=== PATIENT | female | born 1970 | race Caucasian/White ===

== ENCOUNTER 2016-11-05 12:22 | Emergency (ER) | payer MEDICAID ==
[2016-11-05 12:34] VITALS: BP 146/89
--- NOTE | 2016-11-05 12:46 | EDM.PDOC ---
ED HPI ALTERED MENTAL STATUS - General Chief Complaint: Drug or Alcohol Abuse Stated Complaint: [facility] Time Seen by Provider: 11/05/16 12:30 Source of Information: Reports: Patient History Limitations: Reports: No limitations - History of Present Illness INITIAL COMMENTS - FREE TEXT/NARRATIVE: Patient is now alert and speaks completely normally. She reports she feels back to normal. She cannot remember that time that she injected herself with heroin in her right knee area. She was warned that it was very potent. She states was white in color. She is a long-term heroine user. Apparently people that she was with instructed one of the children to call 911 and paramedics arrived to find her not breathing. She had no veins to speak of. She therefore received 2 mg of Narcan intranasally and then she was bagged aggressively to try get into her bloodstream. She received second dose of 2 mg of Narcan in one of her external jugular veins. This brought her back to normal cognition. 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 - Related Data Allergies/ADRs: Allergies amoxicillin [Amoxicillin] Allergy (Verified 11/05/16 12:27) Swelling codeine Allergy (Verified 11/05/16 12:27) Hives Home Meds: Home Meds Ciprofloxacin [Ciprofloxacin HCl] 500 mg PO BID #14 tablet 06/16/16 [Rx] Past Medical History Genitourinary History: Reports: Renal calculus - Past Surgical History HEENT Surgical History: Reports: Other (see below) Other HEENT 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 Female Surgical History: Reports: section Musculoskeletal Surgical History: Reports: Other (see below) Other Musculoskeletal Surgeries/Procedures:: back surgery Social & Family History - Tobacco Use Smoking Status *Q: Current Every Day Smoker Years of Tobacco use: 30 Packs/Tins Daily: 0.5 - Caffeine Use Caffeine Use: Reports: Soda - Alcohol Use Days Per Week of Alcohol Use: 0 - Recreational Drug Use Recreational Drug Use: Yes Drug Use in Last 12 Months: Yes - Living Situation & Occupation Living situation: Reports: Occupation: unemployed ED ROS GENERAL - Review of Systems Review Of Systems: See Below Constitutional: Reports: no symptoms HEENT: Reports: No symptoms Respiratory: Reports: Shortness of Breath (Chronic smoker), Cough Cardiovascular: Denies: Chest pain Endocrine: Reports: fatigue GI/Abdominal: Reports: Constipation (Occasional) : Reports: frequency Musculoskeletal: Reports: back pain Skin: Reports: bruising Neurological: Reports: No Symptoms Psychiatric: Reports: No symptoms - Physical Exam Exam: See Below Exam Limited By: No limitations General Appearance: alert, no apparent distress (States feels good enough to go home.) Eye Exam: bilateral eye: normal inspection, PERRL (Pupils are 6 mm and equal. There is no gaze palsy.) Throat/Mouth: Normal inspection, Normal lips, Normal teeth (No evidence of tongue injury or bite injury), Normal oropharynx Head Exam: atraumatic, normocephalic Neck: normal inspection, supple, non-tender, full range of motion Respiratory/Chest: no respiratory distress, no accessory muscle use, rhonchi, wheezing (Rhonchi right upper lobe which cleared with coughing. Occasional diffuse expiratory wheezes. She smokes a pack and half of cigarettes daily.) Cardiovascular: normal peripheral pulses, regular rate, rhythm, no edema, no gallop, no murmur GI/Abdominal: normal bowel sounds, soft, non tender, no organomegaly, no distention Neuro Exam (Abbreviated): alert, oriented, CN II-XII intact, normal cognition Back Exam: normal inspection, full range of motion Extremities: normal inspection, normal range of motion, non-tender, normal capillary refill Psychiatric: normal affect, normal mood Skin Exam: Warm, Dry, Intact, Normal color, Other (Injection site today was just superior and medial to her right patella.) Course - Vital Signs Last Recorded V/S: Last Vital Signs Temp 36.3 C 11/05/16 12:27 Pulse 93 11/05/16 12:27 Resp 15 11/05/16 12:27 BP 146/89 H 11/05/16 12:27 Pulse Ox 100 11/05/16 12:27 - Radiology Interpretation Free Text/Narrative:: 46-year-old female presents the ED per [place] embolus. They were summoned to a home for a lady not breathing. Appears that she had taken an intentional dose of her one as she is a recreational heroin user chronically. She was warned of the current heroin that she had just bone was quite strong and to take a smaller dose than normal. She states she did so. Unclear how long she passed out for. She can't remember exactly when she injected herself. Paramedics had a very difficult time resuscitating her. They could find no veins. She received Narcan 1 mg each nares by aerosol spray and then bag vigorously and her nasal mucosa. They did give her 2 mg and an external jugular vein which brought her back to normal cognition. Vital signs on arrival are revealing O2 sats 100%. Chest is clear to auscultation except for a few rhonchi from cigarette smoking. No function is completely normal. Plan is to be monitored for an hour and a half or so to make sure that there is no rebound as the Narcan wears off and she rate relapses. - Re-Assessments/Exams Free Text/Narrative Re-Assessment/Exam: 11/05/16 14:00: Feels fine with no nausea vomiting. No evidence of recurrence of spider Lonnie distress. She did express an interest in pursuing either Suboxone her meds methadone treatment program to stop using intravenous oncotics. I will therefore make a referral to Dr. Lopez up in [place] on her behalf. Not sure if there is a restricted the patient's that he sees Center. I will have his office give her call at your leisure. Departure - Departure Time of Disposition: 14:21 Disposition: Home, Self-Care 01 Condition: fair Clinical Impression: Accidental heroin overdose Qualifiers: Encounter type: initial encounter Qualified Code(s): T40.1X1A - Poisoning by heroin, accidental (unintentional), initial encounter Instructions: Opioid Overdose Referrals: Cristin Wise PA-C [Primary Care Provider] - Additional Instructions: Evaluation in emergency today after being vigorously resuscitated by paramedics after an accidental heroin overdose. They found you not breathing after use of heroin. You were resuscitated with a milligram of Narcan up each nostril and then 2 mg injected into the external jugular vein to bring you back to life. Monitored in the ED to make sure there was no rebound respiratory depression after receiving the Narcan. Narcan effect wears off in about 20 minutes to half an hour.
== END 2016-11-05 14:50 | disposition home or self-care (01) ==
LOC: JD.ED 12:22
DX: T40.1X1A Poisoning by heroin, accidental (unintentional), initial encounter (principal); F17.210 Nicotine dependence, cigarettes, uncomplicated; Z98.890 Other specified postprocedural states; Z88.1 Allergy status to other antibiotic agents; Z88.5 Allergy status to narcotic agent
CPT/HCPCS: 99283; 99284

== ENCOUNTER 2016-11-07 03:40 | Emergency (ER) | payer MEDICAID ==
[2016-11-07 03:59] VITALS: BP 142/89
[2016-11-07] MEDS ORDERED: Clindamycin HCl 150 MG Cap PO ONE (04:11)
--- NOTE | 2016-11-07 04:13 | EDM.PDOC ---
ED HPI ENT - General Chief Complaint: ENT Problem Stated Complaint: UPPER RIGHT SIDE TOOTH PAIN Time Seen by Provider: 11/07/16 04:04 Source of Information: Reports: Patient History Limitations: Reports: No limitations - History of Present Illness INITIAL COMMENTS - FREE TEXT/NARRATIVE: The patient presents with right upper canine dental pain. This started last week but has been getting worse. She has no fever or chills. She does have bad teeth and has seen a dentist in [place] and they plan on removing 11 teeth. Timing/Duration: Reports: Day(s): Severity: severe Location: Reports: mouth Quality: Reports: Sharp Improves with: Reports: None Worsens with: Reports: None Associated Symptoms: Denies: fever/chills - Related Data Allergies/ADRs: Allergies Allergy/AdvReac Type Severity Reaction Status Date / Time amoxicillin [Amoxicillin] Allergy Swelling Verified 11/07/16 04:00 codeine Allergy Hives Verified 11/07/16 04:00 Home Meds: Home Meds Ciprofloxacin [Ciprofloxacin HCl] 500 mg PO BID #14 tablet 06/16/16 [Rx] Clindamycin HCl 450 mg PO TID #90 capsule 11/07/16 [Rx] traMADol [Ultram] 50 - 100 mg PO Q6H PRN #20 tablet 11/07/16 [Rx] Past Medical History Genitourinary History: Reports: Renal calculus - Past Surgical History HEENT Surgical History: Reports: Other (see below) Other HEENT 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 Female Surgical History: Reports: section Musculoskeletal Surgical History: Reports: Other (see below) Other Musculoskeletal Surgeries/Procedures:: back surgery Social & Family History - Tobacco Use Smoking Status *Q: Current Every Day Smoker Years of Tobacco use: 30 Packs/Tins Daily: 0.5 - Caffeine Use Caffeine Use: Reports: Soda - Alcohol Use Days Per Week of Alcohol Use: 0 - Recreational Drug Use Recreational Drug Use: Yes Drug Use in Last 12 Months: Yes - Living Situation & Occupation Living situation: Reports: Occupation: unemployed ED ROS ENT - Review of Systems Review Of Systems: See Below Constitutional: Reports: no symptoms HEENT: Reports: Dental pain Respiratory: Reports: No Symptoms Cardiovascular: Reports: No symptoms Endocrine: Reports: no symptoms GI/Abdominal: Reports: No symptoms : Reports: no symptoms ED EXAM, ENT - Physical Exam Exam: See Below Exam Limited By: No limitations General Appearance: alert, no apparent distress Ears: normal external exam Nose: normal inspection Mouth/Throat: Other (Poor dental hygeine with missing teeth. Pain upon palpation, erythema and edema of the right upper cannine.) Course - Vital Signs Last Recorded V/S: Last Vital Signs Temp 97.6 F 11/07/16 03:56 Pulse 120 H 11/07/16 03:56 Resp 18 11/07/16 03:56 BP 142/89 H 11/07/16 03:56 Pulse Ox 99 11/07/16 03:56 Departure - Departure Time of Disposition: 04:15 Disposition: Home, Self-Care 01 Condition: good Clinical Impression: Dental abscess, Dental caries Prescriptions: Clindamycin HCl 450 mg PO TID #90 capsule traMADol [Ultram] 50 - 100 mg PO Q6H PRN #20 tablet PRN Reason: Pain Forms: ED Department Discharge Additional Instructions: Take the clindamycin 3 pills 3 times per day for 10 days. Take the ultram 1 to 2 pills every 6 hours as needed for pain. Follow up with your dentist within a week. Please return if you are worse.
== END 2016-11-07 04:39 | disposition home or self-care (01) ==
LOC: JD.ED 03:40
DX: K04.7 Periapical abscess without sinus (principal); K02.9 Dental caries, unspecified; F17.210 Nicotine dependence, cigarettes, uncomplicated; Z88.1 Allergy status to other antibiotic agents; Z88.5 Allergy status to narcotic agent; Z79.899 Other long term (current) drug therapy
CPT/HCPCS: 99282; A9270; 99283

== ENCOUNTER 2017-01-16 20:01 | Emergency (ER) | payer MEDICAID ==
[2017-01-16 20:23] VITALS: BP 132/86
[2017-01-16] MEDS ORDERED: Sodium Chloride 0.9% 1,000 ML IV SCH (20:45)
[2017-01-16] MEDS ORDERED: Ondansetron 4 MG Tab.DIS PO ONE (20:47)
--- NOTE | 2017-01-16 21:19 | EDM.PDOC ---
ED HPI GENERAL MEDICAL PROBLEM - General Chief Complaint: General Stated Complaint: HEAT STROKE Time Seen by Provider: 01/16/17 20:29 Source of Information: Reports: Patient History Limitations: Reports: No Limitations - History of Present Illness INITIAL COMMENTS - FREE TEXT/NARRATIVE: This is a 46-year-old female. She spent her day at [facility] from 6:30 AM to 4 PM. She thinks she has heatstroke so she been sweating the entire time. She does complain of blurry vision nausea leg cramps shortness of breath. She denies any alcohol intake at the [place]. now that she is in the building she says the blurry vision has resolved her nausea is still slightly there her cramps are gone she was not short of breath. When I mentioned we would draw some blood on her and check her blood premature he requested an HIV test. I indicated we don't normally do that in the ER since we have a hard time with followup and that the health department as HIV testing and she should go there . 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: Neurological History: Reports: Migraines Psychiatric History: Reports: Addiction, Anxiety, Depression Other Psychiatric History: Patient states she has a history of drug addiction - Infectious Disease History Infectious Disease History: Reports: Hepatitis C - Past Surgical History Female Surgical History: Reports: Section Social & Family History - Tobacco Use Smoking Status *Q: Current Every Day Smoker Years of Tobacco use: 30 Packs/Tins Daily: 0.5 Used Tobacco, but Quit: No Second Hand Smoke Exposure: No - Caffeine Use Caffeine Use: Reports: Soda - Alcohol Use Days Per Week of Alcohol Use: 0 - Recreational Drug Use Recreational Drug Use: Yes Drug Use in Last 12 Months: Yes Recreational Drug Type: Reports: Heroin, Methamphetamine Other Recreational Drug Type: History, patient states she last used many years ago Recreational Drug Use Frequency: Patient Refuses To Answer - Living Situation & Occupation Living situation: Reports: Occupation: Unemployed ED ROS GENERAL - Review of Systems Review Of Systems: See Below Constitutional: Reports: Weakness, Fatigue HEENT: Reports: No Symptoms Respiratory: Reports: No Symptoms Cardiovascular: Reports: No Symptoms Endocrine: Reports: No Symptoms GI/Abdominal: Reports: Nausea. Denies: Vomiting : Reports: No Symptoms Musculoskeletal: Reports: No Symptoms Skin: Reports: No Symptoms Neurological: Reports: Headache Psychiatric: Reports: No Symptoms ED EXAM, GENERAL - Physical Exam Exam: See Below Exam Limited By: No Limitations General Appearance: Alert, WD/WN, No Apparent Distress Eye Exam: Bilateral Eye: Normal Inspection Ears: Normal External Exam Nose: Normal Inspection Throat/Mouth: Normal Inspection, Normal Lips, Normal Voice Head: Normocephalic Neck: Supple Respiratory/Chest: No Respiratory Distress, Lungs Clear, Normal Breath Sounds Cardiovascular: Regular Rate, Rhythm, No Murmur GI/Abdominal: Soft, Non-Tender Back Exam: Full Range of Motion Extremities: Normal Inspection, Normal Range of Motion Neurological: Alert, Oriented Psychiatric: Normal Affect, Normal Mood Skin Exam: Warm, Dry, Other (Patient has evidence of first degree sunburn to her face shoulders upper arms noted specifically) Course - Vital Signs Last Recorded V/S: Last Vital Signs Temp 97.5 F 01/16/17 20:14 Pulse 91 01/16/17 20:14 Resp 20 01/16/17 20:14 BP 132/86 01/16/17 20:23 Pulse Ox 99 01/16/17 20:14 - Orders/Labs/Meds Labs: Laboratory Tests 01/16/17 01/16/17 Range/Units 21:35 21:35 WBC 12.22 H (3.98-10.04) K/mm3 RBC 4.94 (3.98-5.22) M/mm3 Hgb 10.7 L (11.2-15.7) gm/L Hct 34.6 (34.1-44.9) % MCV 70.0 L (79.4-94.8) fl MCH 21.7 L (25.6-32.2) pg MCHC 30.9 L (32.2-35.5) g/dl RDW Std Deviation 45.3 (36.4-46.3) fL Plt Count 354 (182-369) K/mm3 MPV 11.3 (9.4-12.3) fl Neut % (Auto) 58.6 (34.0-71.1) % Lymph % (Auto) 24.2 (19.3-51.7) % [place] % (Auto) 12.8 H (4.7-12.5) % Eos % (Auto) 2.9 (0.7-5.8) Baso % (Auto) 0.4 (0.1-1.2) % Neut # (Auto) 7.16 H (1.56-6.13) K/mm3 Lymph # (Auto) 2.96 (1.18-3.74) K/mm3 [place] # (Auto) 1.56 H (0.24-0.36) K/mm3 Eos # (Auto) 0.36 (0.04-0.36) K/mm3 Baso # (Auto) 0.05 (0.01-0.08) K/mm3 Manual Slide Review Abnormal smear Sodium 140 (136-145) mEq/L Potassium 4.4 (3.5-5.1) mEq/L Chloride 105 (98-107) mEq/L Carbon Dioxide 23 (21-32) mEq/L Anion Gap 16.4 H (5-15) BUN 19 H (7-18) mg/dL Creatinine 0.8 (0.55-1.02) mg/dL Est Cr Clr Drug Dosing 89.58 mL/min Estimated GFR (MDRD) > 60 (>60) mL/min BUN/Creatinine Ratio 23.8 H (14-18) Glucose 102 (74-106) mg/dL Calcium 9.3 (8.5-10.1) mg/dL Total Bilirubin 0.3 (0.2-1.0) mg/dL AST 104 H (15-37) U/L ALT 112 H (14-59) U/L Alkaline Phosphatase 108 (46-116) U/L Creatine Kinase 48 (26-192) U/L Total Protein 9.1 H (6.4-8.2) g/dl Albumin 3.4 (3.4-5.0) g/dl Globulin 5.7 gm/dL Albumin/Globulin Ratio 0.6 L (1-2) Meds: Medications Discontinued Medications Generic Name Dose Route Start Last Admin Trade Name Sadaf PRN Reason Stop Dose Admin Sodium Chloride 1,000 mls @ 1,000 mls/hr 01/16/17 20:45 Normal Saline IV ASDIRECTED [facility], [facility] Ondansetron HCl 4 mg 01/16/17 20:47 01/16/17 20:50 Zofran Odt PO 01/16/17 20:48 4 mg ONETIME ONE Administration - Re-Assessments/Exams Free Text/Narrative Re-Assessment/Exam: 01/16/17 23:59 Spoke to the patient regarding her lab results. I encouraged her to continue lots of fluids and stay out of the sun over the weekend. Departure - Departure Time of Disposition: 23:59 Disposition: Home, Self-Care 01 Condition: good Clinical Impression: Mild dehydration Heat exhaustion Qualifiers: Encounter type: initial encounter Qualified Code(s): T67.5XXA - Heat exhaustion , unspecified, initial encounter - Discharge Information Prescriptions: Ondansetron [Zofran ODT] 4 mg PO Q6H PRN #12 tab.dis PRN Reason: Nausea Referrals: Cristin Wise PA-C [Primary Care Provider] - Forms: ED Department Discharge Additional Instructions: Stay out of the sun over the weekend, to not overheated yourself with activity for the next 48 hours, continue to drink lots of fluids especially water and juices and avoid caffeine, recheck with your doctor later this week, return to the ER if needed
== END 2017-01-17 00:15 | disposition home or self-care (01) ==
LOC: JD.ED 20:01
DX: T67.5XXA Heat exhaustion, unspecified, initial encounter (principal); L55.0 Sunburn of first degree; E86.0 Dehydration; F17.210 Nicotine dependence, cigarettes, uncomplicated; Z88.1 Allergy status to other antibiotic agents; Z88.5 Allergy status to narcotic agent; Z98.890 Other specified postprocedural states
CPT/HCPCS: 36415; 80053; 82550; 85025; 99284; A9270; 99283

== ENCOUNTER 2018-01-03 00:27 | Emergency (ER) | payer MEDICAID ==
[2018-01-03 00:35] VITALS: BP 146/98
[2018-01-03] MEDS ORDERED: Ketorolac 60 MG/2 ML SDV IM ONE (01:15)
--- NOTE | 2018-01-03 01:21 | EDM.PDOC ---
ED HPI GENERAL MEDICAL PROBLEM - General Chief Complaint: ENT Problem Stated Complaint: TOOTH PAIN Time Seen by Provider: 01/03/18 00:35 Source of Information: Reports: Patient History Limitations: Reports: No Limitations - History of Present Illness INITIAL COMMENTS - FREE TEXT/NARRATIVE: This is a 47-year-old female. She states she was flossing her teeth this evening and she rubbed it across a tooth that was decayed down to the gum and started having increasing pain and now she's has some swelling on the right side of her face. She denies any drainage at this time. She does have a history of advanced dental caries with multiple teeth that are decayed to the gums. She denies any fever or chills denies any nausea or vomiting. Patient is a recovering addict. Right Upper Tooth/Teeth Pain Score (Numeric/FACES): 9 - Related Data Allergies Allergy/AdvReac Type Severity Reaction Status Date / Time amoxicillin [Amoxicillin] Allergy Swelling Verified 01/03/18 00:34 codeine Allergy Hives Verified 01/03/18 00:34 Home Meds: Home Meds Clindamycin HCl 300 mg PO TID #21 capsule 01/03/18 [Rx] Ketorolac Tromethamine 10 mg PO Q8H PRN #12 tablet 01/03/18 [Rx] Naproxen Sodium [Aleve] 2 tab PO QID 01/03/18 [History] Past Medical History Gastrointestinal History: Reports: Hepatitis Other Gastrointestinal History: Hepatitis C Genitourinary History: Reports: Renal Calculus 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 Manic depression Hematologic History: Reports: Anemia Oncologic (Cancer) History: Reports: Cervix - Infectious Disease History Infectious Disease History: Reports: Hepatitis C - Past Surgical History Other GI Surgeries/Procedures: Liver biopsy Female Surgical History: Reports: Section Other Musculoskeletal Surgeries/Procedures:: Back surgery x4 Social & Family History - Family History Family Medical History: Noncontributory - Tobacco Use Smoking Status *Q: Current Every Day Smoker Years of Tobacco use: 31 Packs/Tins Daily: 0.4 - Caffeine Use Caffeine Use: Reports: Soda - Recreational Drug Use Recreational Drug Use: Yes Drug Use in Last 12 Months: No Recreational Drug Type: Reports: Ativan, Benzodiazepines, Cocaine, Codiene, Dilaudid, Fentanyl, Heroin, Marijuana/Hashish, Methamphetamine, Morphine, Oxycodone, Valium, Xanax Other Recreational Drug Type: "Any pain killers" - Last used Jun 2016 - Living Situation & Occupation Living situation: Reports: Occupation: Unemployed ED ROS ENT - Review of Systems Review Of Systems: See Below Constitutional: Denies: Fever, Chills HEENT: Reports: Other (As per history of present illness) Respiratory: Reports: No Symptoms Cardiovascular: Reports: No Symptoms Endocrine: Reports: No Symptoms GI/Abdominal: Reports: No Symptoms : Reports: No Symptoms Musculoskeletal: Reports: No Symptoms Skin: Reports: No Symptoms Neurological: Reports: No Symptoms Psychiatric: Reports: No Symptoms ED EXAM, ENT - Physical Exam Exam: See Below Exam Limited By: No Limitations General Appearance: Alert, WD/WN, No Apparent Distress Eye Exam: Bilateral Eye: Normal Inspection Ears: Normal External Exam Nose: Normal Inspection Mouth/Throat: Normal Lips, Normal Oropharynx, Other (Multiple advanced dental caries with decay to the gums, she does have 5 teeth in the lower gum area anteriorly that appear to be intact, the tooth of question is in the upper anterior jaw all.) Head: Other (She is noted to have on the right upper lip and cheek some swelling compared to the left side and it is tender on palpation) Neck: Supple Respiratory/Chest: No Respiratory Distress, Lungs Clear, Normal Breath Sounds Cardiovascular: Regular Rate, Rhythm, No Murmur GI/Abdominal: Soft Back: Full Range of Motion Extremities: Normal Inspection, Normal Range of Motion Neurological: Alert, Oriented Psychiatric: Normal Affect, Normal Mood Skin: Warm, Dry Course - Vital Signs Last Recorded V/S: Last Vital Signs Temp 98.2 F 01/03/18 00:32 Pulse 109 H 01/03/18 00:32 Resp 18 01/03/18 00:32 BP 146/98 H 01/03/18 00:32 Pulse Ox 96 01/03/18 00:32 - Orders/Labs/Meds Orders: Active Orders 24 hr Category Date Time Status Ketorolac [Toradol] Med 01/03/18 01:15 Once 60 mg IM ONETIME ONE Departure - Departure Time of Disposition: 01:21 Disposition: Home, Self-Care 01 Condition: Good Clinical Impression: Dental caries into pulp, Dental infection, Pain due to dental caries, Soft tissue infection - Discharge Information Prescriptions: Clindamycin HCl 300 mg PO TID #21 capsule Ketorolac Tromethamine 10 mg PO Q8H PRN #12 tablet PRN Reason: Pain Referrals: Cristin Wise PA-C [Primary Care Provider] - Additional Instructions: Give the antibiotics and the pain medicine tomorrow when the pharmacy opens and start taking them as prescribed, YOU USE SHOULD NOT TAKE TORADOL AND NAPROXEN AT THE SAME TIME BECAUSE IT CAN CAUSE ULCERS SO STOP THE NAPROXEN WHILE YOU ARE ON THE TORADOL, follow-up with your family doctor this week for recheck and follow-up with your dentist for tooth repair, return to the ER if needed - My Orders Last 24 Hours: My Active Orders 01/03/18 01:15 Ketorolac [Toradol] 60 mg IM ONETIME ONE - Assessment/Plan Last 24 Hours: My Active Orders 01/03/18 01:15 Ketorolac [Toradol] 60 mg IM ONETIME ONE
== END 2018-01-03 01:33 | disposition home or self-care (01) ==
LOC: JD.ED 00:27
DX: K02.9 Dental caries, unspecified (principal); K04.7 Periapical abscess without sinus; F17.210 Nicotine dependence, cigarettes, uncomplicated; Z88.1 Allergy status to other antibiotic agents; Z88.5 Allergy status to narcotic agent; Z79.899 Other long term (current) drug therapy
CPT/HCPCS: 96372; 99283; J1885

== ENCOUNTER 2018-01-30 17:01 | Emergency (ER) | payer SELFPAY ==
[2018-01-30 17:12] VITALS: BP 148/93
--- NOTE | 2018-01-30 17:36 | EDM.PDOC ---
ED HPI GENERAL MEDICAL PROBLEM - General Chief Complaint: ENT Problem Stated Complaint: TOOTH PAIN Time Seen by Provider: 01/30/18 17:16 Source of Information: Reports: Patient History Limitations: Reports: No Limitations - History of Present Illness INITIAL COMMENTS - FREE TEXT/NARRATIVE: 47 y/o F with dental pain. Has hx dental caries and abscesses, seen here a few weeks ago for dental abscess. Hasn't followed up yet but has an appointment with dental in [place] for tooth extraction. She now as pain in a R lower tooth. Tooth gumline has been swollen and she states there was a pus pocket. No fever. No facial or neck pain or swelling or difficulty swallowing. Taking ibuprofen for pain. 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 Manic depression Hematologic History: Reports: Anemia Oncologic (Cancer) History: Reports: Cervix - Infectious Disease History Infectious Disease History: Reports: Hepatitis C - Past Surgical History Other GI Surgeries/Procedures: Liver biopsy Female Surgical History: Reports: Section Other Musculoskeletal Surgeries/Procedures:: Back surgery x4 Social & Family History - Family History Family Medical History: Noncontributory - Tobacco Use Smoking Status *Q: Current Every Day Smoker Years of Tobacco use: 30 Packs/Tins Daily: 0.5 - Caffeine Use Caffeine Use: Reports: Soda - Recreational Drug Use Recreational Drug Use: No - Living Situation & Occupation Living situation: Reports: Occupation: Unemployed ED ROS ENT - Review of Systems Review Of Systems: See Below Constitutional: Denies: Fever HEENT: Reports: Dental Pain Respiratory: Denies: Shortness of Breath Cardiovascular: Reports: No Symptoms Musculoskeletal: Denies: Neck Pain ED EXAM, ENT - Physical Exam Exam: See Below Exam Limited By: No Limitations General Appearance: Alert, WD/WN, No Apparent Distress Eye Exam: Bilateral Eye: Normal Inspection Ears: Normal External Exam Nose: Normal Inspection Mouth/Throat: Other (poor dentition with multiple missing teeth and dental caries. tooth #28 is broken down to the gumline. she has a small area of gum swelling with small pocket that apepars to have drained. ) Head: Atraumatic, Normocephalic. No: Facial Swelling Neck: Normal Inspection, Supple, Non-Tender Respiratory/Chest: No Respiratory Distress Neurological: Alert, Oriented, Normal Cognition, No Motor/Sensory Deficits Psychiatric: Normal Affect, Normal Mood Skin: Warm, Dry, Intact, Normal Color, No Rash Course - Vital Signs Last Recorded V/S: Last Vital Signs Temp 37.2 C 01/30/18 17:07 Pulse 95 01/30/18 17:07 Resp 14 01/30/18 17:07 BP 148/93 H 01/30/18 17:07 Pulse Ox 96 01/30/18 17:07 Departure - Departure Time of Disposition: 17:38 Disposition: Home, Self-Care 01 Clinical Impression: Dental abscess - Discharge Information Prescriptions: Clindamycin HCl 300 mg PO QID #28 capsule Instructions: Dental Abscess Referrals: PCP,Unknown [Ordering Only Provider] - Forms: ED Department Discharge Additional Instructions: 1. Continue to take ibuprofen for pain 2. Take clindamycin as prescribed 3. Follow up with dentist as planned 4. You may also follow up with your primary care provider if you have further concerns before you can see the dentist
== END 2018-01-30 17:50 | disposition home or self-care (01) ==
LOC: JD.ED 17:01
DX: K04.7 Periapical abscess without sinus (principal); F17.210 Nicotine dependence, cigarettes, uncomplicated; Z88.1 Allergy status to other antibiotic agents; Z88.5 Allergy status to narcotic agent
CPT/HCPCS: 99282; 99283

== ENCOUNTER 2019-01-10 18:22 | Emergency (ER) | payer MEDICAID ==
[2019-01-10 18:31] VITALS: BP 145/104
--- NOTE | 2019-01-10 19:07 | EDM.PDOC ---
ED HPI GENERAL MEDICAL PROBLEM - General Chief Complaint: Lower Extremity Injury/Pain Stated Complaint: R FOOT/ANKLE INJURY Time Seen by Provider: 01/10/19 18:28 Source of Information: Reports: Patient, RN Notes Reviewed History Limitations: Reports: No Limitations - History of Present Illness INITIAL COMMENTS - FREE TEXT/NARRATIVE: Patient is a 48-year-old female who presents to the ED for the evaluation of right foot pain and a possible UTI. The patient states that roughly 2 weeks ago she was rushing around her house when she cut the top of her lateral slipped on a plastic tote, the laceration healed well, however she has been developing some increased pain to the right lateral foot, this is the mid foot area. She states that it is worse with pressure, and ambulation. She denies any other recent injuries such as twisting her ankle or otherwise. The patient notes that she's also had an issue with recurrent UTI. She has been recently treated with ciprofloxacin around 3 weeks ago. She notes that she has some dysuria, frequency and urgency again. 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 Manic depression Hematologic History: Reports: Anemia Oncologic (Cancer) History: Reports: Cervix - Infectious Disease History Infectious Disease History: Reports: Hepatitis C - Past Surgical History HEENT Surgical History: Reports: Other (See Below) Other GI Surgeries/Procedures: Liver biopsy Female Surgical History: Reports: Section Other Musculoskeletal Surgeries/Procedures:: Back surgery x4 Social & Family History - Family History Family Medical History: Noncontributory - Tobacco Use Smoking Status *Q: Current Every Day Smoker Years of Tobacco use: 30 Packs/Tins Daily: 0.5 - Caffeine Use Caffeine Use: Reports: Coffee - Recreational Drug Use Recreational Drug Use: Yes Drug Use in Last 12 Months: No - Living Situation & Occupation Living situation: Reports: Occupation: Unemployed Review of Systems - Review of Systems Review Of Systems: See Below Constitutional: Reports: No Symptoms Eyes: Reports: No Symptoms Ears: Reports: No Symptoms Nose: Reports: No Symptoms Mouth/Throat: Reports: No Symptoms Respiratory: Reports: No Symptoms Cardiovascular: Reports: No Symptoms GI/Abdominal: Reports: No Symptoms Genitourinary: Reports: Dysuria Musculoskeletal: Reports: Foot Pain (R lateral dorsum of foot) Skin: Reports: Wound (healing wound to R lateral dorsum of foot) Neurological: Reports: No Symptoms Psychiatric: Reports: No Symptoms ED EXAM, GENERAL - Physical Exam Exam: See Below Exam Limited By: No Limitations General Appearance: Alert, WD/WN, No Apparent Distress Respiratory/Chest: No Respiratory Distress, Lungs Clear, Normal Breath Sounds, No Accessory Muscle Use, Chest Non-Tender Cardiovascular: Normal Peripheral Pulses, Regular Rate, Rhythm, No Murmur Peripheral Pulses: 3+: Dorsalis Pedis (L), Dorsalis Pedis (R) GI/Abdominal: Normal Bowel Sounds, Soft, Non-Tender, No Distention, No Mass Extremities: Normal Inspection, Normal Range of Motion, Normal Capillary Refill , Other (pain is reproduced when she stands). No: Increased Warmth, Redness Neurological: Alert, Oriented, Normal Cognition, No Motor/Sensory Deficits Psychiatric: Normal Affect, Normal Mood Skin Exam: Warm, Dry, Intact, Normal Color, No Rash Course - Vital Signs Last Recorded V/S: Last Vital Signs Temp 98.9 F 01/10/19 18:28 Pulse 108 H 01/10/19 18:28 Resp 16 01/10/19 18:28 BP 145/104 H 01/10/19 18:28 Pulse Ox 98 01/10/19 18:28 - Orders/Labs/Meds Orders: Active Orders 24 hr Category Date Time Status Foot Comp Min 3V Rt [CR] Stat Exams 01/10/19 18:58 Taken CULTURE URINE [RM] Routine Lab 01/10/19 19:47 Received DME for Discharge [COMM] Routine Oth 01/10/19 20:39 Ordered Labs: Laboratory Tests 01/10/19 Range/Units 18:45 Urine Color Yellow (Yellow) Urine Appearance Slt cloudy H (Clear) Urine pH 5.5 (5.0-8.0) Ur Specific Lyle > or = 1.030 (1.005-1.030) Urine Protein Negative (Negative) Urine Glucose (UA) Negative (Negative) Urine Ketones Negative (Negative) Urine Occult Blood Trace-intact H (Negative) Urine Nitrite Negative (Negative) Urine Bilirubin Negative (Negative) Urine Urobilinogen 0.2 (0.2-1.0) Ur Leukocyte Esterase Negative (Negative) Urine RBC 0-5 (0-5) /hpf Urine WBC 10-20 H (0-5) /hpf Ur Squamous Epith Cells 5-10 H (0-5) /hpf Urine Bacteria Few (FEW) /hpf Urine Mucus Moderate H (FEW) /hpf Meds: Medications Discontinued Medications Generic Name Dose Route Start Last Admin Trade Name Freq PRN Reason Stop Dose Admin Levofloxacin 500 mg 01/10/19 20:04 01/10/19 20:08 Levaquin PO 01/10/19 20:05 500 mg ONETIME ONE Administration - Re-Assessments/Exams Free Text/Narrative Re-Assessment/Exam: 01/10/19 19:06 Patient presents to the ED for evaluation of right foot pain and a possible UTI. Have ordered a right foot x-ray, and a UA for further analysis. UA will be sent for culture if indicated. 01/10/19 19:52 Patient's UA is done, and does not demonstrate any nitrites or leukocyte esterase in the urine, however it isn't presents for 10-20 white blood cells, but also 5-10 epithelial cells which would suggest some contamination. I have sent the urine for culture to determine if it is just contamination versus infection. Foot x-ray is done, there is no sign of any obvious fracture, however official radiology read is pending at this time. I will treat her empirically for a suspected urethritis. I have ordered 500 mg levofloxacin and we'll provide the patient with a 7 day course of 500 mg ciprofloxacin. 01/10/19 20:40 Patient x-ray does not demonstrate any acute fracture, there is a heel spur, the patient states that she knows this already. We'll provide the patient with a walking boot, and see if this provides relief. And give other general recommendations and discharge her home. Departure - Departure Time of Disposition: 20:41 Disposition: Home, Self-Care 01 Condition: Fair Clinical Impression: Right foot pain, Urethritis - Discharge Information *PRESCRIPTION DRUG MONITORING PROGRAM REVIEWED*: No *COPY OF PRESCRIPTION DRUG MONITORING REPORT IN PATIENT MORTEZA: No Prescriptions: Ciprofloxacin HCl [Cipro] 500 mg PO BID #13 tablet Instructions: Musculoskeletal Pain Referrals: PCP,None [Primary Care Provider] - Forms: ED Department Discharge Additional Instructions: You have been evaluated in the ED for your Right foot pain. Your x-ray demonstrated no acute fracture at this visit. Please use ice as tolerated to the affected area. You may take tylenol 500 mg or ibuprofen 600mg q6 hrs for pain relief. Please do so until you have a tolerable level of pain with activity. Do not exceed 4000mg tylenol, Do not exceed 3200mg ibuprofen in a 24 hour time period. Your urinalysis showed some white blood cells in your urine, however this did contain some epithelial cells which would suggest contamination. I did send your urine for culture for confirmation to see if there is any bacteria. Other than normal anastasiia. You have been started on empiric antibiotics for urethritis at this time. Please continue to take these unless you are directed otherwise. You will be contacted with the results of your culture if he should need a change in antibiotics. Please follow up with primary care for your arthritis like symptoms. Dr. Nitin Gonzalez be a good choice for a primary care provider, our clinic number is . Please call at your earliest convenience to schedule an appointment for further management. Please return to ED if your symptoms should change or worsen. - My Orders Last 24 Hours: My Active Orders 01/10/19 18:58 Foot Comp Min 3V Rt [CR] Stat 01/10/19 19:47 CULTURE URINE [RM] Routine 01/10/19 20:39 DME for Discharge [COMM] Routine - Assessment/Plan Last 24 Hours: My Active Orders 01/10/19 18:58 Foot Comp Min 3V Rt [CR] Stat 01/10/19 19:47 CULTURE URINE [RM] Routine 01/10/19 20:39 DME for Discharge [COMM] Routine
[2019-01-10] MEDS ORDERED: Levofloxacin 500 MG Tab PO ONE (20:04)
--- NOTE | 2019-01-11 11:18 | CR ---
Right foot: Four views of the right foot were obtained. Comparison: No previous foot exam. Plantar spur is seen. No fracture, dislocation or other bony abnormality is identified. Impression: 1. Plantar spur. Nothing acute is seen on right foot exam. Diagnostic code #2
== END 2019-01-10 20:50 | disposition home or self-care (01) ==
LOC: JD.ED 18:22
DX: N34.2 Other urethritis (principal); M79.671 Pain in right foot; F17.210 Nicotine dependence, cigarettes, uncomplicated; Z88.0 Allergy status to penicillin; Z88.1 Allergy status to other antibiotic agents; Z88.5 Allergy status to narcotic agent
CPT/HCPCS: 73630; 81001; 87086; 87088; 87186; 99283; A9270